=== PATIENT | female | born 1945 | race Caucasian/White ===

== ENCOUNTER 2020-06-17 18:33 | Emergency (ER) | payer MEDICARE ==
--- NOTE | 2020-06-17 19:43 | EDM.PDOC ---
ED HPI GENERAL MEDICAL PROBLEM - General Chief Complaint: General Stated Complaint: BREAST BIOPSY BLEEDING Time Seen by Provider: 06/17/20 19:10 Source of Information: Reports: Patient, RN Notes Reviewed History Limitations: Reports: No Limitations - History of Present Illness INITIAL COMMENTS - FREE TEXT/NARRATIVE: Patient is a 74-year-old female presenting to the emergency department with concerns of bleeding to her breast biopsy site. She states around 10 AM this morning, she had a biopsy completed on her left breast. When she got home this evening, she took off her bra and noticed blood beneath the clear dressing. There is also a small amount of blood coming out from under the dressing. This concerned her, therefore she presented here for evaluation. Left Breast Pain Score (Numeric/FACES): 4 - Related Data Allergies Allergy/AdvReac Type Severity Reaction Status Date / Time No Known Allergies Allergy Verified 06/17/20 19:08 Home Meds: Home Meds Levothyroxine 75 mcg PO DAILY 06/17/20 [History] atorvaSTATin [Lipitor] 10 mg PO DAILY 06/17/20 [History] Past Medical History Cardiovascular History: Reports: High Cholesterol RECORDS CUSTODIAN History: Reports: Other (See Below) Other RECORDS CUSTODIAN History: left breast biopsy 06-17-20 Endocrine/Metabolic History: Reports: Hypothyroidism - Infectious Disease History Infectious Disease History: Reports: Chicken Pox, Measles, Mumps Social & Family History - Tobacco Use Tobacco Use Status *Q: Never Tobacco User - Caffeine Use Caffeine Use: Reports: None - Recreational Drug Use Recreational Drug Use: No ED ROS GENERAL - Review of Systems Review Of Systems: Comprehensive ROS is negative, except as noted in HPI. ED EXAM, GENERAL - Physical Exam Exam: See Below General Appearance: Alert, WD/WN, No Apparent Distress Respiratory/Chest: No Respiratory Distress, Lungs Clear, Normal Breath Sounds, No Accessory Muscle Use, Chest Non-Tender Cardiovascular: Normal Peripheral Pulses, Regular Rate, Rhythm, No Edema, No Gallop, No JVD, No Murmur, No Rub Skin Exam: Other (Approximately 3 mm open biopsy site to the left breast. No active bleeding.) Course - Vital Signs Last Recorded V/S: Last Vital Signs Temp 97.9 F 06/17/20 19:15 Pulse 95 06/17/20 19:15 Resp 20 06/17/20 19:15 BP 158/80 H 06/17/20 19:15 Pulse Ox 100 06/17/20 19:15 - Re-Assessments/Exams Free Text/Narrative Re-Assessment/Exam: Patient is a 74-year-old female presenting to the emergency department for evaluation of bleeding to her biopsy site on her left breast. On presentation, she had a clear Tegaderm with Steri-Strips to the site. There was blood colle ction under the clear Tegaderm. Dressing was removed. There was no active bleeding to the biopsy site. Using sterile technique, the area surrounding the site was cleansed with an alcohol swab. New Steri-Strips were applied and were covered with a Tegaderm. There continued to be no bleeding noted. We will discharge her home. Discharge instructions as documented. Departure - Departure Time of Disposition: 19:41 Disposition: Home, Self-Care 01 Condition: Good Clinical Impression: Encounter for post surgical wound check - Discharge Information Referrals: Tamy Murrell MD [Primary Care Provider] - Additional Instructions: You were seen in the emergency department today for evaluation of bleeding beneath the dressing of your breast biopsy site. The dressing was removed and there was no longer any bleeding present. New Steri-Strips and clear dressing were applied. You may notice a small amount of bleeding to the area. It is not abnormal to have a small, controlled, amount of bleeding after this type of procedure. If the dressing should appear saturated below the surface of the clear dressing, you should be reevaluated and have the dressing changed. Ot herwise, remove the dressing in approximately 2 days. The strips below the clear dressing should stay in place for at least another day. If you have any further concerns, please not hesitate to return to the emergency department for reevaluation. Sepsis Event Note (ED) - Evaluation Sepsis Screening Result: No Definite Risk - Focused Exam Vital Signs: Vital Signs Temp Pulse Resp BP Pulse Ox 06/17/20 19:15 97.9 F 95 20 158/80 H 100
== END 2020-06-17 19:55 | disposition home or self-care (01) ==
LOC: JD.ED 18:33
DX: Z48.817 Encounter for surgical aftercare following surgery on the skin and subcutaneous tissue (principal); E78.00 Pure hypercholesterolemia, unspecified; Z79.899 Other long term (current) drug therapy
CPT/HCPCS: 99282; 99283

== ENCOUNTER 2023-01-18 11:15 | Day surgery (SDC) | payer MEDICARE ==
[~2023-01-18 11:15] MED LIST: Cefuroxime 10 MG/ML SYRINGE EYELF SCH; Lactated Ringers 1,000 ML IV SCH; Lidocaine 1% PF 2 ML SDV INJECT SCH; Pilocarpine 4% Ophth Soln 15 ML Bot EYELF SCH; Sodium Chloride 0.9% 10 ML Syringe FLUSH PRN; Sodium Chloride 0.9% 10 ML Syringe FLUSH SCH
[2023-01-18] MEDS: Polymyxin B/Trimethoprim 10 ML Bottle EYELF SCH ×3 (11:30→13:16)
[2023-01-18] MEDS: Brimonidine 0.2% Ophth Soln 5 ML Bottle EYELF SCH ×3 (11:35→13:16)
[2023-01-18] MEDS: Phenylephrine 2.5% Ophth Soln 2 ML Bot EYELF SCH ×5 (11:40→12:48)
[2023-01-18] MEDS: Tropicamide 1% Ophth Soln 3 ML Bottle EYELF SCH ×4 (11:45→12:20)
[2023-01-18] MEDS: Tetracaine HCl/PF 0.5% 4 ML Bottle EYEBOTH SCH ×4 (12:35→13:05)
== END 2023-01-18 13:25 | disposition home or self-care (01) ==
LOC: JD.SDS 11:15
PROVIDERS: ATTEND Ophthalmology
DX: H25.812 Combined forms of age-related cataract, left eye (principal); Z96.1 Presence of intraocular lens; Z79.899 Other long term (current) drug therapy
CPT/HCPCS: 66984; A9270; J0697; 00142; 99100; J3490

== ENCOUNTER 2024-07-17 06:00 | Day surgery (SDC) | payer MEDICARE ==
[2024-07-17] MEDS ORDERED: Sodium Chloride 0.9% 100 ML IV ONE (06:01)
[2024-07-17] MEDS ORDERED: Lactated Ringers 1,000 ML IV ONE (06:01)
[2024-07-17] MEDS ORDERED: Propofol 200 MG/20 ML SDV ONE ×3 (06:19→07:40)
[2024-07-17] MEDS ORDERED: ceFAZolin 2 GM Vial ONE (06:25)
[2024-07-17] MEDS ORDERED: fentaNYL 100 MCG/2 ML SDV ONE (06:27)
[2024-07-17] MEDS ORDERED: dexmedeTOMIDine HCl 200 MCG/2 ML SDV ONE (07:08)
[2024-07-17] MEDS ORDERED: Dexamethasone 4 MG/ML 5 ML MDV ONE (07:12)
[2024-07-17] MEDS ORDERED: Ondansetron 4 MG/2 ML SDV ONE (07:12)
[2024-07-17] MEDS ORDERED: ePHEDrine 50 MG/ML SDV ONE (07:31)
[2024-07-17] MEDS ORDERED: Lactated Ringers 1,000 ML ONE (07:41)
[2024-07-17] MEDS: Tranexamic Acid 1,000 MG/10 ML Vial ONE (07:56)
[2024-07-17] MEDS: VANCOmycin 1 GM SDV ONE (07:56)
[2024-07-17] MEDS: Morphine 8 MG, EPINEPHrine 0.3 MG, Cefuroxime 750 MG, Ketorolac 30 MG, Sodium Chloride ... PRN (07:56)
[2024-07-17] MEDS ORDERED: Ondansetron 4 MG/2 ML SDV IVPUSH PRN (08:29)
[2024-07-17] MEDS ORDERED: fentaNYL 100 MCG/2 ML SDV IVPUSH PRN (08:29)
[2024-07-17] MEDS ORDERED: HYDROmorphone 0.5 MG/0.5 ML Syringe IVPUSH PRN (08:29)
[2024-07-17] MEDS: Acetaminophen/HYDROcodone 325-5 MG Tab PO ONE (10:43)
== END 2024-07-17 14:00 | disposition home or self-care (01) ==
LOC: JD.SDS 06:00
PROVIDERS: ATTEND Orthopaedic Surgery
DX: M16.12 Unilateral primary osteoarthritis, left hip (principal); E78.00 Pure hypercholesterolemia, unspecified; E06.3 Autoimmune thyroiditis; Z79.890 Hormone replacement therapy; Z79.899 Other long term (current) drug therapy
CPT/HCPCS: 0055T; 27130; 73501; 97116; 97161; 97530; A9270; C1713; C1776; J0171; J0690; J0697; J1100; J1885; J2272; J2405; J2704; J3010; J7120; 01214; 99100; J3490